=== PATIENT | female | born 1985 | race Caucasian/White ===

== ENCOUNTER → 2016-10-18 | Outpatient (CLI) | payer BC, OTHER ==
[~2016-10-18] MED LIST: PRENTAB26 PO
[2016-10-18 13:22] LABS: BASO % 0.4 %; BASO ABS # 0.03 K/uL (0-0.2); COMPLETE YES; EOS % 4.9 %; HEMATOCRIT 45.4 % (37-47); IG% 0.1 %; LYMPH % 37.1 %; LYMPH ABS # 3.04 K/uL (1.2-3.4); MEAN CORPUSCULAR HEMOGLOBIN 29.3 pg (25-34); MEAN CORPUSCULAR HGB CONC 32.2 g/dl (32-36); MEAN PLATELET VOLUME 10.1 fL (7.4-10.4); MONO % 6.2 %; NEUT % 51.3 %; PLATELET COUNT 393 K/uL (130-400); RED BLOOD COUNT 4.99 M/uL (4.2-5.4); WHITE BLOOD COUNT 8.19 K/uL (4.8-10.8)
[2016-10-18 13:42] LABS: ALT/SGPT 22 U/L (12-78); BLOOD UREA NITROGEN 8 mg/dl (7-18); CALCIUM 9.6 mg/dl (8.5-10.1); CARBON DIOXIDE 26 mmol/L (21-32); CHLORIDE 105 mmol/L (98-107); CHOLESTEROL 174 mg/dl (0-200); CREATININE 0.83 mg/dl (0.60-1.20); GLUCOSE 89 mg/dl (70-99); POTASSIUM 3.6 mmol/L (3.5-5.1); SODIUM 138 mmol/L (136-145); TRIGLYCERIDES 68 mg/dl (0-150); VERY LOW DENSITY LIPOPROT CALC 14 mg/dl
[2016-10-18 13:52] LABS: ALKALINE PHOSPHATASE 63 U/L (45-117); AST/SGOT 18 U/L (15-37); CHOLESTEROL/HDL RATIO 2.9; HDL CHOLESTEROL 61 mg/dl; LDL CHOLESTEROL CALCULATED 99 mg/dl; THYROID STIMULATING HORMONE 0.769 uIu/ml (0.300-4.500)
== END | disposition home or self-care (01) ==
LOC: C.LABSPEC 12:43
PROVIDERS: ATTEND Physician Assistant Medical
DX: E78.5 Hyperlipidemia, unspecified (principal)

== ENCOUNTER → 2016-11-29 | Outpatient (CLI) | payer OTHER | END | disposition home or self-care (01) | LOC: C.PAPS 12:01 | PROVIDERS: ATTEND Obstetrics & Gynecology | DX: Z12.4 Encounter for screening for malignant neoplasm of cervix (principal) ==